=== PATIENT | female | born 1990 | race Caucasian/White ===

== ENCOUNTER 2021-07-30 03:57 | Emergency (ER) | payer SELFPAY ==
[~2021-07-30] VITALS: Ht 162.6 cm; Wt 59.3 kg
[2021-07-30 05:09] LABS: HEMATOCRIT 39.4 % (37.0-47.0); HEMOGLOBIN 12.6 g/dL (12.5-16.0); MEAN CELL VOLUME 95 fl (78-100); MEAN CORPUSCULAR HEMOGLOBIN 30 pg (27-31); MEAN CORPUSCULAR HGB CONC 32 g/dL (33-37); MEAN PLATELET VOLUME 9.3 fl (7.4-10.4); PLATELET COUNT 327 K/mm3 (130-400); RED BLOOD COUNT 4.14 M/mm3 (4.10-5.30); RED CELL DISTRIBUTION WIDTH 12.8 % (11.5-14.5)
[2021-07-30 05:14] LABS: WHITE BLOOD COUNT 24.1 K/mm3 (4.8-10.8)
[2021-07-30 05:16] LABS: ALBUMIN 3.5 g/dL (3.5-5.0); POTASSIUM 3.6 mmol/L (3.5-5.1); SODIUM 138 mmol/L (136-145)
[2021-07-30 05:17] LABS: CALCIUM 8.4 mg/dL (8.3-10.5)
[2021-07-30 05:18] LABS: GLUCOSE 175 mg/dL (65-105); TOTAL PROTEIN 6.8 g/dL (6.4-8.3)
[2021-07-30 05:19] LABS: CARBON DIOXIDE 20 mmol/L (22-29)
[2021-07-30 05:20] LABS: TOTAL BILIRUBIN 0.2 mg/dL (0.2-1.2)
[2021-07-30 05:21] LABS: ALCOHOL IN-HOUSE < 10 mg/dL (<10)
[2021-07-30 05:23] LABS: AST-SGOT 14 U/L (5-34)
[2021-07-30 05:25] LABS: ALT/SGPT 17 U/L (0-55)
[2021-07-30 05:29] LABS: NEUTROPHILS 89 % (42-75)
[2021-07-30 05:30] LABS: LYMPHOCYTE 4 % (20-51); MONOCYTE 4 % (3-10)
[2021-07-30 05:31] LABS: TROPONIN-I 0.03 ng/mL (<0.030)
[2021-07-30 05:34] LABS: ACETAMINOPHEN < 1 ug/mL
[2021-07-30 05:55] LABS: URINE APPEARANCE CLOUDY; URINE COLOR YELLOW
[2021-07-30 05:56] LABS: PH-URINE 5.5 (5.0 - 8.0); URINE BILIRUBIN NEGATIVE (NEGATIVE); URINE BLOOD TRAC (NEGATIVE); URINE KETONE NEGATIVE (NEGATIVE); URINE LEUKOCYTE ESTERASE 1+ (NEGATIVE); URINE MUCUS PRESENT (NOT PRESENT); URINE NITRATE NEGATIVE (NEGATIVE); URINE PROTEIN(semi-quant) 1+ mg/dL (NEGATIVE); URINE UROBILINOGEN NORMAL (NORMAL)
[2021-07-30] MEDS ORDERED: MACROBID 100 M100 MG PO (08:21)
[2021-07-30 08:54] VITALS: BP 126/91
== END 2021-07-30 08:37 | disposition home or self-care (01) ==
LOC: ED 03:57
PROVIDERS: Physician Assistant
DX: T43.501A Poisoning by unspecified antipsychotics and neuroleptics, accidental (unintentional), initial encounter (principal); N39.0 Urinary tract infection, site not specified; F17.210 Nicotine dependence, cigarettes, uncomplicated
CPT/HCPCS: J0696; J7030